=== PATIENT | male | born 1945 | race Native Hawaiian/Other Pacific Islander ===

== ENCOUNTER 2022-08-23 08:57 | Emergency (ER) | payer MEDICARE, BC ==
[~2022-08-23] VITALS: Ht 170.2 cm; Wt 61.2 kg
[2022-08-23] MEDS ORDERED: TDAP DIPH,PERTUSS,TET VAC/PF 0.5 ML DISP.SYRIN IM ONE ×2 (09:00→09:07)
[2022-08-23] MEDS ORDERED: ACETAMINOPHEN ES 500 MG TABLET PO ONE (09:00)
[2022-08-23] MEDS ORDERED: ACETAMINOPHEN ES 500 MG TABLET ONE (09:06)
--- NOTE | 2022-08-23 09:14 | NUR ---
PT IS IN ROOM #2A. DR VITALE EVALUATED THE PT.
[2022-08-23] MEDS ORDERED: SILVER NITRATE APPLICATOR STICK EACH TP ONE ×2 (09:59→10:45)
[2022-08-23] MEDS ORDERED: LIDOCAINE 1%-EPI 1:100,000 20 ML VIAL ONE (10:03)
[2022-08-23] MEDS ORDERED: LIDOCAINE 1%-EPI 1:100,000 20 ML VIAL IJ ONE (10:15)
--- NOTE | 2022-08-23 13:21 | NUR ---
PT WAS D/C'd TO HOME. D/C INSTRUCTIONS GIVEN TO THE PT BY DR VITALE.
[2022-08-23 13:22] VITALS: BP 142/78
== END 2022-08-23 13:23 | disposition home or self-care (01) ==
LOC: ER 08:57
DX: S01.01XA Laceration without foreign body of scalp, initial encounter (principal); E11.9 Type 2 diabetes mellitus without complications; W01.0XXA Fall on same level from slipping, tripping and stumbling without subsequent striking against object, initial encounter; Y93.89 Activity, other specified; Y92.89 Other specified places as the place of occurrence of the external cause; Y99.8 Other external cause status
CPT/HCPCS: 99285; 70450; 72125; 90715; 90471; 12002; J3490; A4663; A9150

== ENCOUNTER 2022-08-24 11:20 | Emergency (ER) | payer MEDICARE, BC ==
[~2022-08-24] VITALS: Ht 170.2 cm; Wt 61.2 kg
--- NOTE | 2022-08-24 11:42 | NUR ---
PT WAS EVALUATED BY DR TURK. PT WAS D/C'd TO HOME. D/C INSTRUCTIONS GIVEN TO THE PT BY DR TURK.
[2022-08-24 11:43] VITALS: BP 138/74
== END 2022-08-24 11:44 | disposition home or self-care (01) ==
LOC: ER 11:20
DX: S01.01XD Laceration without foreign body of scalp, subsequent encounter (principal); W01.198D Fall on same level from slipping, tripping and stumbling with subsequent striking against other object, subsequent encounter
CPT/HCPCS: A4663